=== PATIENT | female | born 1995 | race Caucasian/White ===

== ENCOUNTER 2016-11-18 19:17 | Emergency (ER) | payer BC, SELFPAY ==
[~2016-11-18] VITALS: Ht 177.8 cm; Wt 127.0 kg
[2016-11-18] MEDS ORDERED: METF500T PO (19:38)
[2016-11-18] MEDS ORDERED: NAPR500T PO (20:39)
[2016-11-18 20:46] VITALS: BP 122/52
== END 2016-11-18 20:53 | disposition home or self-care (01) ==
LOC: M ED 20:52
DX: N94.6 Dysmenorrhea, unspecified (principal); E28.2 Polycystic ovarian syndrome; E66.9 Obesity, unspecified; E11.9 Type 2 diabetes mellitus without complications; Z79.899 Other long term (current) drug therapy

== ENCOUNTER 2017-01-20 16:47 | Emergency (ER) | payer MEDICAID, OTHER, SELFPAY ==
[~2017-01-20 16:47] MED LIST: METF500T13 PO; NAPR500T PO
[2017-01-20] MEDS ORDERED: NS 1,000 ML IV ONE (17:15)
[2017-01-20] MEDS ORDERED: METF500T13 PO (17:18)
[2017-01-20] MEDS ORDERED: D-CA1KIT XX (17:19)
[2017-01-20 17:38] LABS: MEAN CORPUSCULAR HEMOGLOBIN 30.5 pg (27.0-33.0); MEAN CORPUSCULAR VOLUME 87.1 fl (80.0-96.0); RED CELL DISTRIBUTION WIDTH 12.5 % (11.5-14.5)
[2017-01-20 18:01] LABS: ANION GAP 8 MEQ/L (8-16); BLOOD UREA NITROGEN 10 MG/DL (7-18); CALCIUM LEVEL 8.6 MG/DL (8.5-10.1); CARBON DIOXIDE LEVEL 26 MEQ/L (21-32); CHLORIDE LEVEL 104 MEQ/L (98-107); CREATININE FOR GFR 0.67 MG/DL (0.55-1.02); GLOMERULAR FILTRATION RATE > 60.0 (>60); GLUCOSE, FASTING 309 MG/DL (70-105); POTASSIUM SERUM 3.9 MEQ/L (3.5-5.1); SODIUM LEVEL 138 MEQ/L (136-145)
[2017-01-20 18:35] VITALS: BP 151/89
== END 2017-01-20 18:38 | disposition home or self-care (01) ==
LOC: M ED 16:47
DX: E11.65 Type 2 diabetes mellitus with hyperglycemia (principal); Z91.14 Patient's other noncompliance with medication regimen; Z79.84 Long term (current) use of oral hypoglycemic drugs

== ENCOUNTER 2017-02-08 12:40 | Emergency (ER) | payer MEDICAID, SELFPAY ==
[~2017-02-08 12:40] MED LIST changes: +D-CA1KIT XX
[2017-02-08] MEDS ORDERED: NS 1,000 ML IV ONE (13:30)
[2017-02-08 13:39] LABS: BASO % 0.3 % (0.0-1.0); EOS # 0.1 K/mm3 (0.0-0.50); EOS % 0.6 % (0.0-3.0); LARGE UNSTAINED CELL # 0.1 K/mm3 (0.0-0.4); LYMPH % 20.9 % (24.0-44.0); MEAN CORPUSCULAR HEMOGLOBIN 29.7 pg (27.0-33.0); MEAN CORPUSCULAR VOLUME 87.3 fl (80.0-96.0); MONO # 0.3 K/mm3 (0.0-0.8); MONO % 3.2 % (0.0-5.0); NEUTROPHILS # 6.9 K/mm3 (1.8-7.7); PLATELET COUNT, AUTOMATED 321 k/mm3 (150-450); RED CELL DISTRIBUTION WIDTH 12.9 % (11.5-14.5); WHITE BLOOD COUNT 9.3 K/mm3 (4.0-10.0)
[2017-02-08 13:56] LABS: OSMOLALITY SERUM 303 MOSM/KG (275-295)
[2017-02-08 14:02] LABS: ALBUMIN 3.6 GM/DL (3.2-5.2); ALBUMIN/GLOBULIN RATIO 0.77 (1.00-1.93); ALKALINE PHOSPHATASE 73 U/L (45-117); ALT/SGPT 37 U/L (12-78); ANION GAP 8 MEQ/L (8-16); AST/SGOT 17 U/L (15-37); BILIRUBIN,DIRECT 0.1 MG/DL (0.0-0.2); BILIRUBIN,TOTAL 0.4 MG/DL (0.2-1.0); BLOOD UREA NITROGEN 11 MG/DL (7-18); CALCIUM LEVEL 9.2 MG/DL (8.5-10.1); CARBON DIOXIDE LEVEL 26 MEQ/L (21-32); CHLORIDE LEVEL 103 MEQ/L (98-107); CREATININE FOR GFR 0.63 MG/DL (0.55-1.02); GLOMERULAR FILTRATION RATE > 60.0 (>60); GLUCOSE, FASTING 310 MG/DL (70-105); MAGNESIUM LEVEL 1.7 MG/DL (1.8-2.4); POTASSIUM SERUM 4.2 MEQ/L (3.5-5.1); SODIUM LEVEL 137 MEQ/L (136-145); TOTAL PROTEIN 8.3 GM/DL (6.4-8.2)
[2017-02-08 14:04] LABS: CONTROL LINE HCG INT CTR LINE PRESENT
[2017-02-08 14:16] LABS: METHADONE URINE NEGATIVE (NEGATIVE)
[2017-02-08 14:18] VITALS: BP 93/52
[2017-02-08] MEDS ORDERED: glipiZIDE (GLUCOTROL) 5 MG TAB PO ONE (15:00)
[2017-02-08] MEDS ORDERED: GLIP10TA6 PO (15:01)
[2017-02-08] MEDS ORDERED: BLOOKIT20 XX (15:01)
== END 2017-02-08 15:13 | disposition home or self-care (01) ==
LOC: M ED 12:40 → EDBD 12:40 → M ED 15:13
DX: E11.65 Type 2 diabetes mellitus with hyperglycemia (principal); Z79.84 Long term (current) use of oral hypoglycemic drugs; Z91.02 Food additives allergy status

== ENCOUNTER 2017-02-23 14:55 | Emergency (ER) | payer MEDICAID, SELFPAY ==
[~2017-02-23] VITALS: Ht 177.8 cm; Wt 127.8 kg
[~2017-02-23 14:55] MED LIST changes: +BLOOKIT20 XX; +GLIP10TA6 PO
[2017-02-23 14:56] VITALS: BP 131/76
[2017-02-24] MEDS ORDERED: BACT800T5 PO (00:24)
[2017-02-24] MEDS ORDERED: METF500T13 PO (01:15)
== END 2017-02-23 16:53 | disposition left against medical advice (07) ==
LOC: M ED 14:55
DX: R10.9 Unspecified abdominal pain (principal); Z53.21 Procedure and treatment not carried out due to patient leaving prior to being seen by health care provider

== ENCOUNTER 2017-02-23 22:14 | Emergency (ER) | payer MEDICAID, SELFPAY ==
[2017-02-23] MEDS ORDERED: NS 1,000 ML IV ONE (23:15)
[2017-02-23] MEDS ORDERED: HumuLIN R (REGULAR) INSULIN (NovoLIN R) **100U/ML** PER UNIT IV ONE (23:15)
[2017-02-24 00:13] LABS: ANION GAP 7 MEQ/L (8-16); BLOOD UREA NITROGEN 10 MG/DL (7-18); CALCIUM LEVEL 9.4 MG/DL (8.5-10.1); CARBON DIOXIDE LEVEL 29 MEQ/L (21-32); CHLORIDE LEVEL 101 MEQ/L (98-107); CREATININE FOR GFR 0.62 MG/DL (0.55-1.02); GLOMERULAR FILTRATION RATE > 60.0 (>60); GLUCOSE, FASTING 347 MG/DL (70-105); POTASSIUM SERUM 4.2 MEQ/L (3.5-5.1); SODIUM LEVEL 137 MEQ/L (136-145)
[2017-02-24] MEDS ORDERED: BACT800T5 PO (00:24)
[2017-02-24] MEDS ORDERED: METF500T13 PO (01:15)
== END 2017-02-24 01:20 | disposition home or self-care (01) ==
LOC: M ED 22:14 → EDBD 22:14 → M ED 02-24 01:20
DX: E11.65 Type 2 diabetes mellitus with hyperglycemia (principal); N39.0 Urinary tract infection, site not specified; Z91.14 Patient's other noncompliance with medication regimen; Z79.899 Other long term (current) drug therapy; Z79.84 Long term (current) use of oral hypoglycemic drugs; Z91.02 Food additives allergy status

== ENCOUNTER 2017-03-04 17:21 | Emergency (ER) | payer MEDICAID ==
[~2017-03-04] VITALS: Ht 177.8 cm; Wt 127.3 kg
[~2017-03-04 17:21] MED LIST changes: +BACT800T5 PO
[2017-03-04] MEDS ORDERED: BACT800T5 PO (18:35)
[2017-03-04 18:45] VITALS: BP 129/81
== END 2017-03-04 18:46 | disposition home or self-care (01) ==
LOC: M ED 17:21
DX: E11.9 Type 2 diabetes mellitus without complications (principal); L03.90 Cellulitis, unspecified; Z79.84 Long term (current) use of oral hypoglycemic drugs; Z79.899 Other long term (current) drug therapy; Z91.018 Allergy to other foods

== ENCOUNTER 2017-03-09 08:44 | Emergency (ER) | payer MEDICAID ==
[2017-03-09 09:13] VITALS: BP 119/72
[2017-03-09] MEDS ORDERED: DOXY100C PO (09:58)
[2017-03-09] MEDS ORDERED: NAPR500T PO (09:59)
== END 2017-03-09 10:30 | disposition home or self-care (01) ==
LOC: EEVIPCON 08:44 → M ED 08:44
DX: L03.312 Cellulitis of back [any part except buttock and flank] (principal); E11.9 Type 2 diabetes mellitus without complications; E66.9 Obesity, unspecified; Z79.84 Long term (current) use of oral hypoglycemic drugs; Z91.02 Food additives allergy status

== ENCOUNTER 2017-03-24 09:35 | Emergency (ER) | payer MEDICAID ==
[~2017-03-24] VITALS: Ht 177.8 cm; Wt 127.7 kg
[~2017-03-24 09:35] MED LIST changes: +DOXY100C PO
[2017-03-24] MEDS ORDERED: IBUPROFEN 800 MG TAB PO ONE (11:30)
[2017-03-24] MEDS ORDERED: PERCOCET 5MG/325MG TAB PO ONE (11:45)
[2017-03-24 11:47] LABS: BASO % 0.3 % (0.0-1.0); EOS % 0.1 % (0.0-3.0); IMMATURE GRANULOCYTE % 0.3 % (0-0); LYMPH # 2.3 10^3/uL (1.5-6.5); LYMPH % 15.7 % (24.0-44.0); MEAN CORPUSCULAR HEMOGLOBIN 28.9 pg (27.0-33.0); MEAN CORPUSCULAR HGB CONC 33.3 g/dl (32.0-36.5); MONO # 0.7 10^3/uL (0.0-0.8); MONO % 5.1 % (0.0-5.0); NEUTROPHILS # 11.3 10^3/uL (1.8-7.7); NEUTROPHILS % 78.5 % (36.0-66.0); PLATELET COUNT, AUTOMATED 317 10^3/uL (150-450); RED CELL DISTRIBUTION WIDTH 12.2 % (11.5-14.5); WHITE BLOOD COUNT 14.4 10^3/uL (4.0-10.0)
[2017-03-24 12:05] LABS: ERYTHROCYTE SEDIMENTATION RATE 50 mm/hr (0-20)
[2017-03-24 12:39] VITALS: BP 139/90
[2017-03-24] MEDS ORDERED: PRED20TA PO (12:44)
[2017-03-24] MEDS ORDERED: PERC5TAB12 PO (12:44)
[2017-03-24] MEDS ORDERED: CELE1CAP4 PO (12:44)
--- NOTE | 2017-03-24 15:13 | REP ---
LEFT SHOULDER SERIES: FOUR VIEWS. HISTORY: Atraumatic pain. FINDINGS: Four views of the left shoulder demonstrate normal alignment of the glenohumeral and acromioclavicular joints. Periarticular soft tissues are unremarkable. No rib or pulmonary lesion is visible. IMPRESSION: Negative left shoulder radiographs. Signed by Scott Jerez MD 03/24/2017 05:28 P
== END 2017-03-24 13:00 | disposition home or self-care (01) ==
LOC: M ED 09:35
DX: M13.812 Other specified arthritis, left shoulder (principal); E11.9 Type 2 diabetes mellitus without complications; F41.9 Anxiety disorder, unspecified; F32.9 Major depressive disorder, single episode, unspecified; Z79.84 Long term (current) use of oral hypoglycemic drugs; Z79.899 Other long term (current) drug therapy; Z91.02 Food additives allergy status

== ENCOUNTER 2017-03-27 10:03 | Emergency (ER) | payer MEDICAID ==
[~2017-03-27] VITALS: Ht 177.8 cm; Wt 127.3 kg
[2017-03-27 10:03] VITALS: BP 147/78
[~2017-03-27 10:03] MED LIST changes: +CELE1CAP4 PO; +PERC5TAB12 PO; +PRED20TA PO
[2017-03-27] MEDS ORDERED: NORCO, ANEXSIA 5/325MG TABLET (HYDROcodone/ACETAMINOPHEN) PO ONE (10:30)
[2017-03-27] MEDS ORDERED: IBUPROFEN 800 MG TAB PO ONE (10:30)
[2017-03-27] MEDS ORDERED: NAPR500T PO (10:48)
[2017-03-27] MEDS ORDERED: NORCOTAB PO (10:48)
== END 2017-03-27 11:18 | disposition home or self-care (01) ==
LOC: M ED 10:03
DX: M06.812 Other specified rheumatoid arthritis, left shoulder (principal); M19.012 Primary osteoarthritis, left shoulder; E11.9 Type 2 diabetes mellitus without complications; Z79.899 Other long term (current) drug therapy; Z91.02 Food additives allergy status

== ENCOUNTER 2017-03-30 09:55 | Emergency (ER) | payer MEDICAID ==
[~2017-03-30] VITALS: Ht 177.8 cm; Wt 127.3 kg
[~2017-03-30 09:55] MED LIST changes: +NORCOTAB PO
[2017-03-30 09:56] VITALS: BP 135/76
[2017-03-30] MEDS ORDERED: PERC5TAB12 (10:13)
[2017-03-30] MEDS ORDERED: BACT800T5 PO (11:24)
[2017-03-30] MEDS ORDERED: IBUP-1022 PO (11:24)
== END 2017-03-30 11:42 | disposition home or self-care (01) ==
LOC: M ED 09:55
DX: L02.211 Cutaneous abscess of abdominal wall (principal); E11.9 Type 2 diabetes mellitus without complications; Z79.84 Long term (current) use of oral hypoglycemic drugs; Z79.899 Other long term (current) drug therapy; Z91.02 Food additives allergy status

== ENCOUNTER 2017-04-02 11:27 | Emergency (ER) | payer MEDICAID ==
[~2017-04-02] VITALS: Ht 177.8 cm; Wt 124.1 kg
[~2017-04-02 11:27] MED LIST changes: +IBUP-1022 PO; +PERC5TAB12
[2017-04-02] MEDS ORDERED: KETOROLAC 30 MG/ML VIAL (J1885) IV ONE (12:45)
[2017-04-02] MEDS ORDERED: CLINDAMYCIN 600 MG in APPROPRIATE DILUENT 1 EA IV ONE (12:45)
[2017-04-02] MEDS ORDERED: NS 500 ML IV ONE (12:45)
[2017-04-02] MEDS ORDERED: MORPHINE 4 MG/ML 1ML SYRINGE IV ONE (12:45)
--- NOTE | 2017-04-02 13:06 | ED PDOC ---
Post-Departure Follow-Up PT PRESENTS TODAY FROM DR. BEASLEY'S OFFICE ([facility] – [place]) COMPLAINING OF LEFT ARM/ SHOULDER/AXILLARY PAIN. STATES SHE WAS SEEN IN THE ER A FEW WEEKS AGO FOR JOINT PAIN AND AN INFECTION ON HER ABDOMEN. WAS PRESCRIBED ANTIBIOTICS BUT STATES WHEN SHE TRIED TO PICK THEM UP, THE PROVIDER WASN'T COVERED BY HER PLAN AND SHE WAS UNABLE TO GET THE PRESCRIPTION FOR ANTIBIOTICS. STATES THAT INFECTION HAS BEEN SPREADING ACROSS HER ABDOMEN OVER THE PAST 2 WEEKS. STATES SHE IS A DIABETIC AND IS SUPPOSED TO CHECK HER BLOOD SUGAR BUT DOESN'T. IS ESTABLISHING WITH A NEW PCP WITHIN THE NEXT MONTH "TO GET EVERYTHING IN ORDER". STATES NO INJURY TO LEFT SHOULDER. FAMILY HISTORY OF BLOOD CLOTS, DENIES SMOKING. STATES NOW HAVING PAIN IN THE LEFT SHOULDER AND DR. BEASLEY CONCERNED FOR A DVT AND SENT PT IN TO THE ED TO R/O DVT. BRITANY GERMAIN PA-C Apr 02, 2017 13:06
[2017-04-02 13:19] LABS: BASO % 0.1 % (0.0-1.0); EOS # 0.1 10^3/uL (0.0-0.50); EOS % 0.6 % (0.0-3.0); IMMATURE GRANULOCYTE % 0.4 % (0-0); LYMPH # 2.8 10^3/uL (1.5-6.5); MEAN CORPUSCULAR HEMOGLOBIN 29.2 pg (27.0-33.0); MEAN CORPUSCULAR HGB CONC 33.2 g/dl (32.0-36.5); MEAN CORPUSCULAR VOLUME 88.1 fl (80.0-96.0); MONO # 0.8 10^3/uL (0.0-0.8); NEUTROPHILS # 12.5 10^3/uL (1.8-7.7); NEUTROPHILS % 76.9 % (36.0-66.0); PLATELET COUNT, AUTOMATED 396 10^3/uL (150-450); RED CELL DISTRIBUTION WIDTH 12.2 % (11.5-14.5); WHITE BLOOD COUNT 16.2 10^3/uL (4.0-10.0)
[2017-04-02 13:25] LABS: ANION GAP 5 MEQ/L (8-16); BLOOD UREA NITROGEN 12 MG/DL (7-18); CALCIUM LEVEL 9.4 MG/DL (8.5-10.1); CARBON DIOXIDE LEVEL 32 MEQ/L (21-32); CHLORIDE LEVEL 98 MEQ/L (98-107); CREATININE FOR GFR 0.62 MG/DL (0.55-1.02); GLOMERULAR FILTRATION RATE > 60.0 (>60); GLUCOSE, FASTING 291 MG/DL (70-105); POTASSIUM SERUM 3.6 MEQ/L (3.5-5.1); SODIUM LEVEL 135 MEQ/L (136-145)
--- NOTE | 2017-04-02 14:11 | REP ---
LEFT UPPER EXTREMITY DUPLEX VEINS. HISTORY: Left arm pain. There are no filling defects in the deep venous system. The deep venous system is patent. A mixed hypo isoechoic structure is present in the axilla. This measures 5.3 x 4.5 x 2.6 cm. IMPRESSION: 1. There is no deep venous thrombosis. 2. There is a mixed echoic structure in the axilla that may represent an abscess or hematoma. Signed by Charles Llamas MD 04/02/2017 02:14 P
[2017-04-02 14:13] LABS: ERYTHROCYTE SEDIMENTATION RATE 75 mm/hr (0-20)
[2017-04-02] MEDS ORDERED: NORCOTAB PO (14:27)
[2017-04-02] MEDS ORDERED: CLEO300C2 PO (14:27)
[2017-04-02] MEDS ORDERED: METF-839 PO (14:27)
[2017-04-02 15:52] VITALS: BP 138/77
== END 2017-04-02 15:56 | disposition home or self-care (01) ==
LOC: M ED 11:27
DX: L02.412 Cutaneous abscess of left axilla (principal); L03.311 Cellulitis of abdominal wall; R73.09 Other abnormal glucose; E11.65 Type 2 diabetes mellitus with hyperglycemia; F41.9 Anxiety disorder, unspecified; F32.9 Major depressive disorder, single episode, unspecified; M06.9 Rheumatoid arthritis, unspecified; Z79.84 Long term (current) use of oral hypoglycemic drugs; Z79.899 Other long term (current) drug therapy; Z91.02 Food additives allergy status
CPT/HCPCS: 80048; 83036; 85025; 85652; 86140; 87040; 87070; 87077; 87186; 87205; 93971; 96374; 96375; 99283; J1885

== ENCOUNTER 2017-04-02 22:04 | Emergency (ER) | payer MEDICAID ==
[~2017-04-02 22:04] MED LIST changes: +CLEO300C2 PO; +METF-839 PO
== END 2017-04-02 22:25 | disposition left against medical advice (07) ==
LOC: EDBD 22:04 → M ED 22:04
DX: R73.9 Hyperglycemia, unspecified (principal); Z53.21 Procedure and treatment not carried out due to patient leaving prior to being seen by health care provider

== ENCOUNTER 2017-04-06 17:03 | Emergency (ER) | payer MEDICAID ==
[~2017-04-06] VITALS: Ht 177.8 cm; Wt 124.1 kg
[2017-04-06] MEDS ORDERED: ONDANSETRON 4MG/2ML VIAL (J2405) IV ONE (18:45)
[2017-04-06] MEDS ORDERED: MORPHINE 4 MG/ML 1ML SYRINGE IV ONE (18:45)
[2017-04-06 19:04] LABS: BASO % 0.3 % (0.0-1.0); EOS # 0.2 10^3/uL (0.0-0.50); EOS % 1.6 % (0.0-3.0); IMMATURE GRANULOCYTE % 0.4 % (0-0); LYMPH # 2.7 10^3/uL (1.5-6.5); LYMPH % 18.8 % (24.0-44.0); MEAN CORPUSCULAR HEMOGLOBIN 28.8 pg (27.0-33.0); MEAN CORPUSCULAR VOLUME 87.2 fl (80.0-96.0); MONO # 0.6 10^3/uL (0.0-0.8); MONO % 4.2 % (0.0-5.0); NEUTROPHILS # 10.6 10^3/uL (1.8-7.7); NEUTROPHILS % 74.7 % (36.0-66.0); PLATELET COUNT, AUTOMATED 444 10^3/uL (150-450); WHITE BLOOD COUNT 14.2 10^3/uL (4.0-10.0)
[2017-04-06 19:23] LABS: ALBUMIN 2.9 GM/DL (3.2-5.2); ALBUMIN/GLOBULIN RATIO 0.53 (1.00-1.93); ALKALINE PHOSPHATASE 113 U/L (45-117); ALT/SGPT 20 U/L (12-78); ANION GAP 6 MEQ/L (8-16); AST/SGOT 7 U/L (15-37); BILIRUBIN,TOTAL 0.2 MG/DL (0.2-1.0); BLOOD UREA NITROGEN 10 MG/DL (7-18); CALCIUM LEVEL 9.2 MG/DL (8.5-10.1); CARBON DIOXIDE LEVEL 30 MEQ/L (21-32); CHLORIDE LEVEL 101 MEQ/L (98-107); CREATININE FOR GFR 0.79 MG/DL (0.55-1.02); GLOMERULAR FILTRATION RATE > 60.0 (>60); GLUCOSE, FASTING 309 MG/DL (70-105); POTASSIUM SERUM 3.8 MEQ/L (3.5-5.1); SODIUM LEVEL 137 MEQ/L (136-145); TOTAL PROTEIN 8.4 GM/DL (6.4-8.2)
[2017-04-06] MEDS ORDERED: PERC5TAB12 PO (21:28)
[2017-04-06 22:05] VITALS: BP 130/84
== END 2017-04-06 22:17 | disposition home or self-care (01) ==
LOC: M ED 17:03
DX: L02.412 Cutaneous abscess of left axilla (principal); F41.9 Anxiety disorder, unspecified; E11.9 Type 2 diabetes mellitus without complications; Z79.84 Long term (current) use of oral hypoglycemic drugs; Z79.899 Other long term (current) drug therapy; Z91.02 Food additives allergy status
CPT/HCPCS: 10060; 80053; 85025; 87070; 87077; 87186; 96374; 96375; 99284; J2405; J3360

== ENCOUNTER → 2017-06-01 | Outpatient (CLI) | payer OTHER ==
--- NOTE | 2017-06-01 15:52 | REP ---
LEFT AXILLARY ULTRASOUND: Patient has a history of axillary abscess. Real-time sonographic evaluation of the left axillary region demonstrates a complex fluid collection which measures 5.9 x 1.7 x 5.4 cm. Findings are suspicious for recurrent abscess. Signed by Brian Estrada MD 06/01/2017 05:59 P
== END ==
LOC: M RAD 14:25
PROVIDERS: ATTEND Surgery
DX: L73.2 Hidradenitis suppurativa (principal)

== ENCOUNTER → 2017-06-16 | Outpatient (REF) | payer OTHER, MEDICAID ==
[2017-06-16 18:43] LABS: ALBUMIN 3.7 GM/DL (3.2-5.2); ALBUMIN/GLOBULIN RATIO 0.79 (1.00-1.93); ALKALINE PHOSPHATASE 82 U/L (45-117); ALT/SGPT 24 U/L (12-78); ANION GAP 9 MEQ/L (8-16); AST/SGOT 11 U/L (7-37); BILIRUBIN,TOTAL 0.3 MG/DL (0.2-1.0); BLOOD UREA NITROGEN 14 MG/DL (7-18); CALCIUM LEVEL 8.8 MG/DL (8.5-10.1); CARBON DIOXIDE LEVEL 24 MEQ/L (21-32); CHLORIDE LEVEL 103 MEQ/L (98-107); CREATININE FOR GFR 0.58 MG/DL (0.55-1.02); GLOMERULAR FILTRATION RATE > 60.0 (>60); GLUCOSE, FASTING 329 MG/DL (70-105); POTASSIUM SERUM 4.3 MEQ/L (3.5-5.1); SODIUM LEVEL 136 MEQ/L (136-145); TOTAL PROTEIN 8.4 GM/DL (6.4-8.2)
[2017-06-16 18:45] LABS: ESTIMATED AVERAGE GLUCOSE 295 MG/DL (60-110); HEMOGLOBIN A1c 11.9 %
== END ==
LOC: M LAB REF 18:06
DX: E11.9 Type 2 diabetes mellitus without complications (principal)
CPT/HCPCS: 83036

== ENCOUNTER → 2017-07-20 | Outpatient (CLI) | payer OTHER | LOC: M RAD 11:08 | DX: L73.2 Hidradenitis suppurativa (principal) | CPT/HCPCS: 76642 ==

== ENCOUNTER → 2017-08-27 | Outpatient (REF) | payer OTHER ==
[2017-08-27 15:43] LABS: CHLAMYDIA DNA AMPLIFICATION NEGATIVE (NEGATIVE); GC DNA AMPLIFICATION NEGATIVE (NEGATIVE)
== END ==
LOC: M LAB REF 13:17
DX: Z11.3 Encounter for screening for infections with a predominantly sexual mode of transmission (principal)

== ENCOUNTER 2017-12-10 19:02 | Emergency (ER) | payer BC, OTHER ==
[2017-12-10] MEDS: ONDANSETRON 4MG/2ML VIAL (J2405) IV ×2 (20:48)
[2017-12-10] MEDS: NS 1,000 ML IV ×2 (20:48)
[2017-12-10 20:55] LABS: BASO % 0.2 % (0.0-1.0); EOS # 0.1 10^3/uL (0.0-0.50); EOS % 0.7 % (0.0-3.0); HEMATOCRIT 40.4 % (36.0-47.0); HEMOGLOBIN 13.7 g/dl (12.0-15.5); IMMATURE GRANULOCYTE % 0.3 % (0-3.0); LYMPH # 2.4 10^3/uL (1.5-6.5); LYMPH % 24.3 % (24.0-44.0); MEAN CORPUSCULAR HEMOGLOBIN 28.7 pg (27.0-33.0); MEAN CORPUSCULAR HGB CONC 33.9 g/dl (32.0-36.5); MEAN CORPUSCULAR VOLUME 84.5 fl (80.0-96.0); MONO # 0.4 10^3/uL (0.0-0.8); MONO % 4.3 % (0.0-5.0); NEUTROPHILS # 6.9 10^3/uL (1.8-7.7); NEUTROPHILS % 70.2 % (36.0-66.0); PLATELET COUNT, AUTOMATED 345 10^3/uL (150-450); RED BLOOD COUNT 4.78 10^6/uL (4.00-5.40); RED CELL DISTRIBUTION WIDTH 12.4 % (11.5-14.5); WHITE BLOOD COUNT 9.9 10^3/uL (4.0-10.0)
[2017-12-10 20:59] LABS: KETONE, URINE AUTO RFX NEGATIVE (NEGATIVE); LEUKOCYTE ESTERASE UR AUTO RFX 1+ (NEGATIVE); NITRITE, URINE AUTO RFX NEGATIVE (NEGATIVE); RBC, URINE AUTO RFX 2 /HPF (0-3); SPECIFIC GRAVITY UR AUTO RFX 1.037 (1.002-1.035); SQUAM EPITHELIAL CELL UR AURFX 7 /HPF (0-6); WBC, URINE AUTO RFX 5 /HPF (0-3)
[2017-12-10 21:29] LABS: ALBUMIN 3.4 GM/DL (3.2-5.2); ALKALINE PHOSPHATASE 100 U/L (45-117); ALT/SGPT 38 U/L (12-78); AMYLASE 37 U/L (25-115); ANION GAP 7 MEQ/L (8-16); AST/SGOT 17 U/L (7-37); BILIRUBIN,DIRECT < 0.1 MG/DL (0.0-0.2); BILIRUBIN,TOTAL 0.3 MG/DL (0.2-1.0); BLOOD UREA NITROGEN 10 MG/DL (7-18); CALCIUM LEVEL 8.9 MG/DL (8.5-10.1); CARBON DIOXIDE LEVEL 26 MEQ/L (21-32); CHLORIDE LEVEL 104 MEQ/L (98-107); GLOMERULAR FILTRATION RATE > 60.0 (>60); GLUCOSE, FASTING 291 MG/DL (70-100); LIPASE 127 U/L (73-393); POTASSIUM SERUM 3.9 MEQ/L (3.5-5.1); SODIUM LEVEL 137 MEQ/L (136-145); TOTAL PROTEIN 9.1 GM/DL (6.4-8.2)
[2017-12-10] MEDS: HUMULIN R U-500 KWIKPEN 500UNITS/ML 3ML SYRINGE (J1815 PER 5UNITS) SC ×2 (21:41)
[2017-12-10] MEDS: ONDANSETRON 4 MG ORAL DISINTEGRATING TAB (Q0162 PER 1MG) PO ×2 (22:06)
[2017-12-10] MEDS: BACTRIM 160MG/800MG DS TAB PO ×2 (22:06)
== END 2017-12-10 22:11 | disposition home or self-care (01) ==
LOC: M ED 19:02
DX: N39.0 Urinary tract infection, site not specified (principal); R11.2 Nausea with vomiting, unspecified; R19.7 Diarrhea, unspecified; E11.9 Type 2 diabetes mellitus without complications; F31.9 Bipolar disorder, unspecified; F41.9 Anxiety disorder, unspecified; Z87.440 Personal history of urinary (tract) infections; Z91.02 Food additives allergy status; Z79.84 Long term (current) use of oral hypoglycemic drugs
CPT/HCPCS: J2405

== ENCOUNTER 2017-12-18 10:54 | Emergency (ER) | payer OTHER | END 2017-12-18 12:51 | disposition home or self-care (01) | LOC: M ED 10:54 | DX: J02.0 Streptococcal pharyngitis (principal); E11.9 Type 2 diabetes mellitus without complications; F33.9 Major depressive disorder, recurrent, unspecified; Z79.84 Long term (current) use of oral hypoglycemic drugs; Z91.018 Allergy to other foods | CPT/HCPCS: 87880 ==

== ENCOUNTER 2018-03-24 17:37 | Emergency (ER) | payer BC, MEDICAID, SELFPAY, OTHER ==
[2018-03-24 18:03] LABS: KETONE, URINE AUTO RFX NEGATIVE (NEGATIVE); NITRITE, URINE AUTO RFX NEGATIVE (NEGATIVE); RBC, URINE AUTO RFX 6 /HPF (0-3); SPECIFIC GRAVITY UR AUTO RFX 1.026 (1.002-1.035); SQUAM EPITHELIAL CELL UR AURFX 0 /HPF (0-6)
[2018-03-24 18:11] LABS: LEUKOCYTE ESTERASE UR AUTO RFX 2+ (NEGATIVE); WBC, URINE AUTO RFX 126 /HPF (0-3)
[2018-03-24] MEDS: NS 1,000 ML IV ×3 (19:29)
[2018-03-24] MEDS: KETOROLAC 30 MG/ML VIAL (J1885) IV ×3 (19:29)
[2018-03-24] MEDS: ONDANSETRON 4MG/2ML VIAL (J2405) IV ×3 (19:29)
[2018-03-24 19:44] LABS: BASO % 0.2 % (0.0-1.0); EOS % 0.4 % (0.0-3.0); HEMATOCRIT 39.7 % (36.0-47.0); HEMOGLOBIN 13.5 g/dl (12.0-15.5); IMMATURE GRANULOCYTE % 0.3 % (0-3.0); LYMPH # 1.7 10^3/uL (1.5-6.5); LYMPH % 16.4 % (24.0-44.0); MEAN CORPUSCULAR HEMOGLOBIN 29.3 pg (27.0-33.0); MEAN CORPUSCULAR VOLUME 86.1 fl (80.0-96.0); MONO # 0.5 10^3/uL (0.0-0.8); MONO % 4.8 % (0.0-5.0); NEUTROPHILS # 8.2 10^3/uL (1.8-7.7); NEUTROPHILS % 77.9 % (36.0-66.0); PLATELET COUNT, AUTOMATED 297 10^3/uL (150-450); RED BLOOD COUNT 4.61 10^6/uL (4.00-5.40); RED CELL DISTRIBUTION WIDTH 12.3 % (11.5-14.5); WHITE BLOOD COUNT 10.5 10^3/uL (4.0-10.0)
[2018-03-24 20:42] LABS: ALBUMIN 3.3 GM/DL (3.2-5.2); ALKALINE PHOSPHATASE 89 U/L (45-117); ALT/SGPT 37 U/L (12-78); ANION GAP 7 MEQ/L (8-16); AST/SGOT 14 U/L (7-37); BILIRUBIN,DIRECT < 0.1 MG/DL (0.0-0.2); BILIRUBIN,TOTAL 0.6 MG/DL (0.2-1.0); BLOOD UREA NITROGEN 10 MG/DL (7-18); CALCIUM LEVEL 8.5 MG/DL (8.5-10.1); CARBON DIOXIDE LEVEL 27 MEQ/L (21-32); CHLORIDE LEVEL 102 MEQ/L (98-107); CREATININE FOR GFR 0.63 MG/DL (0.55-1.30); GLOMERULAR FILTRATION RATE > 60.0 (>60); GLUCOSE, FASTING 262 MG/DL (70-100); LIPASE 101 U/L (73-393); POTASSIUM SERUM 3.9 MEQ/L (3.5-5.1); SODIUM LEVEL 136 MEQ/L (136-145); TOTAL PROTEIN 8.8 GM/DL (6.4-8.2)
[2018-03-24] MEDS: MORPHINE 4 MG/ML 1ML VIAL/SYRINGE (J2270) IV ×3 (23:53)
== END 2018-03-25 00:12 | disposition home or self-care (01) ==
LOC: M ED 03-25 00:12
DX: N83.202 Unspecified ovarian cyst, left side (principal); K80.20 Calculus of gallbladder without cholecystitis without obstruction; K76.0 Fatty (change of) liver, not elsewhere classified; E11.9 Type 2 diabetes mellitus without complications; Z91.018 Allergy to other foods
CPT/HCPCS: J2270

== ENCOUNTER 2018-03-26 13:16 | Inpatient (IN) | payer MEDICAID, SELFPAY ==
[2018-03-26 14:23] LABS: BASO % 0.2 % (0.0-1.0); HEMATOCRIT 39.5 % (36.0-47.0); HEMOGLOBIN 13.5 g/dl (12.0-15.5); IMMATURE GRANULOCYTE % 0.3 % (0-3.0); LYMPH # 0.9 10^3/uL (1.5-6.5); LYMPH % 9.3 % (24.0-44.0); MEAN CORPUSCULAR HEMOGLOBIN 29.7 pg (27.0-33.0); MEAN CORPUSCULAR HGB CONC 34.2 g/dl (32.0-36.5); MEAN CORPUSCULAR VOLUME 86.8 fl (80.0-96.0); MONO # 0.5 10^3/uL (0.0-0.8); MONO % 5.4 % (0.0-5.0); NEUTROPHILS # 8.1 10^3/uL (1.8-7.7); NEUTROPHILS % 84.8 % (36.0-66.0); PLATELET COUNT, AUTOMATED 226 10^3/uL (150-450); RED BLOOD COUNT 4.55 10^6/uL (4.00-5.40); RED CELL DISTRIBUTION WIDTH 11.9 % (11.5-14.5); WHITE BLOOD COUNT 9.5 10^3/uL (4.0-10.0)
[2018-03-26] MEDS: NS 1,000 ML IV ×3 (14:25→20:38)
[2018-03-26] MEDS: ONDANSETRON 4MG/2ML VIAL (J2405) IV (14:38)
[2018-03-26] MEDS: MORPHINE 2 MG/ML 1ML SYRINGE (J2270) IV (14:39)
[2018-03-26 14:48] LABS: CONTROL LINE HCG INT CTR LINE PRESENT; HCG, SERUM QUALITATIVE NEGATIVE (NEGATIVE)
[2018-03-26] MEDS: LevoFLOXacin IV 500 MG in APPROPRIATE DILUENT 1 EA IV (14:50)
[2018-03-26 14:51] LABS: ALBUMIN 2.8 GM/DL (3.2-5.2); ALBUMIN/GLOBULIN RATIO 0.49 (1.00-1.93); ALKALINE PHOSPHATASE 90 U/L (45-117); ALT/SGPT 50 U/L (12-78); AMYLASE 29 U/L (25-115); ANION GAP 9 MEQ/L (8-16); AST/SGOT 35 U/L (7-37); BILIRUBIN,DIRECT 0.2 MG/DL (0.0-0.2); BILIRUBIN,TOTAL 0.5 MG/DL (0.2-1.0); BLOOD UREA NITROGEN 8 MG/DL (7-18); CALCIUM LEVEL 8.5 MG/DL (8.5-10.1); CARBON DIOXIDE LEVEL 26 MEQ/L (21-32); CHLORIDE LEVEL 101 MEQ/L (98-107); CREATININE FOR GFR 0.77 MG/DL (0.55-1.30); GLOMERULAR FILTRATION RATE > 60.0 (>60); GLUCOSE, FASTING 295 MG/DL (70-100); LIPASE 89 U/L (73-393); POTASSIUM SERUM 3.8 MEQ/L (3.5-5.1); SODIUM LEVEL 136 MEQ/L (136-145); TOTAL PROTEIN 8.5 GM/DL (6.4-8.2)
[2018-03-26 15:02] LABS: LACTIC ACID SEPSIS PROTOCOL 2.3 MMOL/L (0.4-2.0)
[2018-03-26 15:10] LABS: KETONE, URINE AUTO RFX TRACE mg/dL (NEGATIVE); LEUKOCYTE ESTERASE UR AUTO RFX 2+ (NEGATIVE); MUCUS, URINE RFX SMALL (NEGATIVE); NITRITE, URINE AUTO RFX NEGATIVE (NEGATIVE); RBC, URINE AUTO RFX 7 /HPF (0-3); SQUAM EPITHELIAL CELL UR AURFX 5 /HPF (0-6); WBC, URINE AUTO RFX TNTC /HPF (0-3)
[2018-03-26] MEDS: KETOROLAC 30 MG/ML VIAL (J1885) IV (16:16)
[2018-03-26] MEDS ORDERED: ONDANSETRON 4 MG TAB (S0181) PO (17:00)
[2018-03-26] MEDS ORDERED: GLUCOSE 4 GM CHEW TABLET PO (17:00)
[2018-03-26] MEDS ORDERED: DEXTROSE 50% 50 ML SYRINGE IV (17:00)
[2018-03-26] MEDS ORDERED: ONDANSETRON 4MG/2ML VIAL (J2405) IV (17:00)
[2018-03-26] MEDS ORDERED: GLUCAGON FOR INJ 1 MG VIAL (J1610) SC (17:00)
[2018-03-26] MEDS: HumaLOG INSULIN (NovoLOG) PER UNIT SC ×2 (17:30→20:39)
[2018-03-26 20:28] LABS: BEDSIDE GLUCOSE 257 MG/DL (70-105)
[2018-03-26] MEDS: ACETAMINOPHEN TAB 650MG DOSE (2X325MG) PO (20:41)
[2018-03-26] MEDS: FIORICET TAB PO (21:52)
[2018-03-26 23:41] LABS: LACTIC ACID SEPSIS PROTOCOL 1.6 MMOL/L (0.4-2.0)
[2018-03-27] MEDS: ACETAMINOPHEN TAB 650MG DOSE (2X325MG) PO ×3 (02:42→23:36)
[2018-03-27] MEDS: IBUPROFEN 600 MG TAB PO ×2 (03:10→11:22)
[2018-03-27 06:20] LABS: BASO % 0.2 % (0.0-1.0); HEMATOCRIT 34.5 % (36.0-47.0); HEMOGLOBIN 11.8 g/dl (12.0-15.5); IMMATURE GRANULOCYTE % 0.6 % (0-3.0); LYMPH # 0.8 10^3/uL (1.5-6.5); LYMPH % 15.4 % (24.0-44.0); MEAN CORPUSCULAR HEMOGLOBIN 29.6 pg (27.0-33.0); MEAN CORPUSCULAR HGB CONC 34.2 g/dl (32.0-36.5); MEAN CORPUSCULAR VOLUME 86.5 fl (80.0-96.0); MONO # 0.3 10^3/uL (0.0-0.8); MONO % 5.5 % (0.0-5.0); NEUTROPHILS % 78.3 % (36.0-66.0); PLATELET COUNT, AUTOMATED 198 10^3/uL (150-450); RED BLOOD COUNT 3.99 10^6/uL (4.00-5.40); RED CELL DISTRIBUTION WIDTH 11.9 % (11.5-14.5); WHITE BLOOD COUNT 5.1 10^3/uL (4.0-10.0)
[2018-03-27 06:43] LABS: ESTIMATED AVERAGE GLUCOSE 260 MG/DL (60-110); HEMOGLOBIN A1c 10.7 %
[2018-03-27] MEDS: NS 1,000 ML IV (06:46)
[2018-03-27 06:48] LABS: ALBUMIN 2.5 GM/DL (3.2-5.2); ALBUMIN/GLOBULIN RATIO 0.54 (1.00-1.93); ALKALINE PHOSPHATASE 78 U/L (45-117); ALT/SGPT 68 U/L (12-78); ANION GAP 9 MEQ/L (8-16); AST/SGOT 63 U/L (7-37); BILIRUBIN,TOTAL 0.4 MG/DL (0.2-1.0); BLOOD UREA NITROGEN 7 MG/DL (7-18); CALCIUM LEVEL 8.1 MG/DL (8.5-10.1); CARBON DIOXIDE LEVEL 23 MEQ/L (21-32); CHLORIDE LEVEL 107 MEQ/L (98-107); CREATININE FOR GFR 0.61 MG/DL (0.55-1.30); GLOMERULAR FILTRATION RATE > 60.0 (>60); GLUCOSE, FASTING 295 MG/DL (70-100); MAGNESIUM LEVEL 1.7 MG/DL (1.8-2.4); POTASSIUM SERUM 3.6 MEQ/L (3.5-5.1); SODIUM LEVEL 139 MEQ/L (136-145); TOTAL PROTEIN 7.1 GM/DL (6.4-8.2)
[2018-03-27] MEDS: OMEPRAZOLE 20 MG CAP PO (08:46)
[2018-03-27] MEDS: HumaLOG INSULIN (NovoLOG) PER UNIT SC ×4 (08:47→20:32)
[2018-03-27] MEDS: LEVEMIR (INSULIN DETEMIR) 1 UNITS/0.01ML SC (08:48)
[2018-03-27] MEDS: ENOXAPARIN 40 MG/0.4 ML SYRINGE (J1650) SC (08:49)
[2018-03-27] MEDS: MAG SULF 1GM/100ML (MAG RUN) 1 GM in APPROPRIATE DILUENT 1 EA IV (08:49)
[2018-03-27 11:40] LABS: BEDSIDE GLUCOSE 232 MG/DL (70-105)
[2018-03-27] MEDS: LevoFLOXacin IV 750 MG in APPROPRIATE DILUENT 1 EA IV (14:45)
[2018-03-27 16:43] LABS: BEDSIDE GLUCOSE 259 MG/DL (70-105)
[2018-03-27 19:51] LABS: BEDSIDE GLUCOSE 283 MG/DL (70-105)
[2018-03-27] MEDS: KETOROLAC TROMETHAMINE 10 MG TAB PO (20:32)
[2018-03-28] MEDS: IBUPROFEN 600 MG TAB PO (05:44)
[2018-03-28 06:02] LABS: BASO % 0.2 % (0.0-1.0); HEMATOCRIT 34.4 % (36.0-47.0); HEMOGLOBIN 11.2 g/dl (12.0-15.5); IMMATURE GRANULOCYTE % 0.2 % (0-3.0); LYMPH # 1.2 10^3/uL (1.5-6.5); LYMPH % 28.6 % (24.0-44.0); MEAN CORPUSCULAR HEMOGLOBIN 28.4 pg (27.0-33.0); MEAN CORPUSCULAR HGB CONC 32.6 g/dl (32.0-36.5); MEAN CORPUSCULAR VOLUME 87.3 fl (80.0-96.0); MONO # 0.3 10^3/uL (0.0-0.8); MONO % 8.1 % (0.0-5.0); NEUTROPHILS # 2.5 10^3/uL (1.8-7.7); NEUTROPHILS % 61.9 % (36.0-66.0); PLATELET COUNT, AUTOMATED 188 10^3/uL (150-450); RED BLOOD COUNT 3.94 10^6/uL (4.00-5.40); WHITE BLOOD COUNT 4.1 10^3/uL (4.0-10.0)
[2018-03-28 06:45] LABS: ALBUMIN 2.2 GM/DL (3.2-5.2); ALBUMIN/GLOBULIN RATIO 0.46 (1.00-1.93); ALKALINE PHOSPHATASE 88 U/L (45-117); ALT/SGPT 96 U/L (12-78); ANION GAP 6 MEQ/L (8-16); AST/SGOT 70 U/L (7-37); BILIRUBIN,TOTAL 0.2 MG/DL (0.2-1.0); BLOOD UREA NITROGEN 9 MG/DL (7-18); CALCIUM LEVEL 7.8 MG/DL (8.5-10.1); CARBON DIOXIDE LEVEL 26 MEQ/L (21-32); CHLORIDE LEVEL 107 MEQ/L (98-107); CREATININE FOR GFR 0.59 MG/DL (0.55-1.30); GLOMERULAR FILTRATION RATE > 60.0 (>60); GLUCOSE, FASTING 258 MG/DL (70-100); MAGNESIUM LEVEL 1.7 MG/DL (1.8-2.4); POTASSIUM SERUM 4.1 MEQ/L (3.5-5.1); SODIUM LEVEL 139 MEQ/L (136-145)
[2018-03-28] MEDS: HumaLOG INSULIN (NovoLOG) PER UNIT SC ×4 (08:36→21:02)
[2018-03-28] MEDS: MAG SULF 1GM/100ML (MAG RUN) 1 GM in APPROPRIATE DILUENT 1 EA IV (08:38)
[2018-03-28] MEDS: OMEPRAZOLE 20 MG CAP PO (08:39)
[2018-03-28] MEDS: LEVEMIR (INSULIN DETEMIR) 1 UNITS/0.01ML SC (08:40)
[2018-03-28] MEDS: ENOXAPARIN 40 MG/0.4 ML SYRINGE (J1650) SC (08:41)
[2018-03-28] MEDS ORDERED: LEVEMIR (INSULIN DETEMIR) 1 UNITS/0.01ML SC (09:00)
[2018-03-28 11:24] LABS: BEDSIDE GLUCOSE 251 MG/DL (70-105)
[2018-03-28] MEDS: LevoFLOXacin IV 750 MG in APPROPRIATE DILUENT 1 EA IV (13:41)
[2018-03-28] MEDS: ACETAMINOPHEN TAB 650MG DOSE (2X325MG) PO ×2 (16:01→21:02)
[2018-03-28 16:28] LABS: BEDSIDE GLUCOSE 200 MG/DL (70-105)
[2018-03-28 20:59] LABS: BEDSIDE GLUCOSE 220 MG/DL (70-105)
[2018-03-29] MEDS: ACETAMINOPHEN TAB 650MG DOSE (2X325MG) PO (03:38)
[2018-03-29 07:48] LABS: BASO % 0.2 % (0.0-1.0); EOS % 0.2 % (0.0-3.0); HEMATOCRIT 33.6 % (36.0-47.0); HEMOGLOBIN 11.2 g/dl (12.0-15.5); IMMATURE GRANULOCYTE % 0.3 % (0-3.0); LYMPH % 34.6 % (24.0-44.0); MEAN CORPUSCULAR HEMOGLOBIN 28.8 pg (27.0-33.0); MEAN CORPUSCULAR HGB CONC 33.3 g/dl (32.0-36.5); MEAN CORPUSCULAR VOLUME 86.4 fl (80.0-96.0); MONO # 0.5 10^3/uL (0.0-0.8); MONO % 8.6 % (0.0-5.0); NEUTROPHILS # 3.3 10^3/uL (1.8-7.7); NEUTROPHILS % 56.1 % (36.0-66.0); PLATELET COUNT, AUTOMATED 253 10^3/uL (150-450); RED BLOOD COUNT 3.89 10^6/uL (4.00-5.40); RED CELL DISTRIBUTION WIDTH 12.2 % (11.5-14.5); WHITE BLOOD COUNT 5.8 10^3/uL (4.0-10.0)
[2018-03-29 08:03] LABS: ALBUMIN 2.4 GM/DL (3.2-5.2); ALBUMIN/GLOBULIN RATIO 0.48 (1.00-1.93); ALKALINE PHOSPHATASE 100 U/L (45-117); ALT/SGPT 89 U/L (12-78); ANION GAP 8 MEQ/L (8-16); AST/SGOT 52 U/L (7-37); BILIRUBIN,TOTAL 0.3 MG/DL (0.2-1.0); BLOOD UREA NITROGEN 5 MG/DL (7-18); CALCIUM LEVEL 8.4 MG/DL (8.5-10.1); CARBON DIOXIDE LEVEL 26 MEQ/L (21-32); CHLORIDE LEVEL 106 MEQ/L (98-107); CREATININE FOR GFR 0.48 MG/DL (0.55-1.30); GLOMERULAR FILTRATION RATE > 60.0 (>60); GLUCOSE, FASTING 173 MG/DL (70-100); MAGNESIUM LEVEL 1.9 MG/DL (1.8-2.4); POTASSIUM SERUM 3.6 MEQ/L (3.5-5.1); SODIUM LEVEL 140 MEQ/L (136-145); TOTAL PROTEIN 7.4 GM/DL (6.4-8.2)
[2018-03-29] MEDS: ENOXAPARIN 40 MG/0.4 ML SYRINGE (J1650) SC (08:37)
[2018-03-29] MEDS: OMEPRAZOLE 20 MG CAP PO (08:58)
[2018-03-29] MEDS: HumaLOG INSULIN (NovoLOG) PER UNIT SC ×2 (08:59→12:18)
[2018-03-29] MEDS: LEVEMIR (INSULIN DETEMIR) 1 UNITS/0.01ML SC (08:59)
[2018-03-29 11:49] LABS: BEDSIDE GLUCOSE 184 MG/DL (70-105)
[2018-03-29] MEDS: IBUPROFEN 600 MG TAB PO (12:18)
[2018-03-29] MEDS: LevoFLOXacin 500 MG TABLET PO (13:39)
== END 2018-03-29 15:49 | disposition home or self-care (01) | DRG 720 ==
LOC: M ED 13:16 → M ED INP 16:52 → M MSPAV 20:15
PROVIDERS: Hospitalist
DX: A41.9 Sepsis, unspecified organism (principal); E11.69 Type 2 diabetes mellitus with other specified complication; E11.65 Type 2 diabetes mellitus with hyperglycemia; N10 Acute pyelonephritis; B96.20 Unspecified Escherichia coli [E. coli] as the cause of diseases classified elsewhere; F41.9 Anxiety disorder, unspecified; F32.9 Major depressive disorder, single episode, unspecified; K52.9 Noninfective gastroenteritis and colitis, unspecified; R07.81 Pleurodynia; Z79.84 Long term (current) use of oral hypoglycemic drugs; E66.9 Obesity, unspecified; Z91.14 Patient's other noncompliance with medication regimen; Z79.899 Other long term (current) drug therapy

== ENCOUNTER 2018-05-16 04:00 | Emergency (ER) | payer BC, MEDICAID ==
[~2018-05-16] VITALS: Ht 177.8 cm; Wt 134.1 kg
[~2018-05-16 04:00] MED LIST changes: +AFRI0.0511; +ALCOPAD17 TOP; +AMOX875T PO; +BASA100I SC; +BENZ200C70 PO; -BLOOKIT20 XX; +BLOOKIT21 XX; +GLUC1TES2 XX; +INSU1MIS20 SC; +LANC30MI XX; +LEVA1TAB2 PO; +METF10004 PO; +NAPR-49 PO; -NAPR500T PO; +OMEP20TA PO; +PX O20TA PO; +TOUJ1.2I; +TOUJ1.2I SC; +ZOFR4TAB14 PO
[2018-05-16 05:50] LABS: BASO % 0.3 % (0.0-1.0); EOS # 0.1 10^3/uL (0.0-0.50); EOS % 0.9 % (0.0-3.0); HEMATOCRIT 41.1 % (36.0-47.0); LYMPH # 2.1 10^3/uL (1.5-6.5); LYMPH % 22.5 % (24.0-44.0); MEAN CORPUSCULAR HEMOGLOBIN 29.2 pg (27.0-33.0); MEAN CORPUSCULAR HGB CONC 34.1 g/dl (32.0-36.5); MEAN CORPUSCULAR VOLUME 85.6 fl (80.0-96.0); MONO # 0.4 10^3/uL (0.0-0.8); MONO % 4.2 % (0.0-5.0); NEUTROPHILS # 6.7 10^3/uL (1.8-7.7); NEUTROPHILS % 71.9 % (36.0-66.0); PLATELET COUNT, AUTOMATED 306 10^3/uL (150-450); WHITE BLOOD COUNT 9.3 10^3/uL (4.0-10.0)
[2018-05-16 06:19] LABS: ALT/SGPT 49 U/L (12-78); BLOOD UREA NITROGEN 13 MG/DL (7-18); CALCIUM LEVEL 8.8 MG/DL (8.5-10.1); CARBON DIOXIDE LEVEL 26 MEQ/L (21-32); CHLORIDE LEVEL 100 MEQ/L (98-107); CREATININE FOR GFR 0.79 MG/DL (0.55-1.30); GLOMERULAR FILTRATION RATE > 60.0 (>60); GLUCOSE, FASTING 472 MG/DL (70-100); POTASSIUM SERUM 4.4 MEQ/L (3.5-5.1); SODIUM LEVEL 134 MEQ/L (136-145)
[2018-05-16 06:20] LABS: ALBUMIN 3.4 GM/DL (3.2-5.2); BILIRUBIN,DIRECT < 0.1 MG/DL (0.0-0.2); BILIRUBIN,TOTAL 0.3 MG/DL (0.2-1.0); LIPASE 143 U/L (73-393); TOTAL PROTEIN 8.3 GM/DL (6.4-8.2)
[2018-05-16] MEDS ORDERED: ONDANSETRON 4 MG ORAL DISINTEGRATING TAB (Q0162 PER 1MG) PO ONE (06:30)
[2018-05-16] MEDS ORDERED: OMEP40CA2 PO (06:32)
[2018-05-16] MEDS ORDERED: PERC5TAB12 PO (06:32)
[2018-05-16] MEDS ORDERED: PERCOCET 5MG/325MG TAB PO ONE (06:45)
[2018-05-16] MEDS ORDERED: ONDA4TAB6 PO (07:52)
[2018-05-16 07:57] VITALS: BP 134/90
== END 2018-05-16 08:26 | disposition home or self-care (01) ==
LOC: M ED 04:00
DX: K80.70 Calculus of gallbladder and bile duct without cholecystitis without obstruction (principal); E11.65 Type 2 diabetes mellitus with hyperglycemia; R11.10 Vomiting, unspecified; Z87.19 Personal history of other diseases of the digestive system; F31.9 Bipolar disorder, unspecified; R51 Headache; Z87.42 Personal history of other diseases of the female genital tract; Z87.440 Personal history of urinary (tract) infections; Z91.018 Allergy to other foods; Z79.899 Other long term (current) drug therapy; Z79.4 Long term (current) use of insulin
CPT/HCPCS: 36415; 80048; 80076; 81025; 83690; 85025; 99284; Q0162

== ENCOUNTER 2018-05-18 15:30 | Emergency (ER) | payer MEDICAID | END 2018-05-18 17:04 | disposition left against medical advice (07) | LOC: M ED 15:30 | DX: R22.0 Localized swelling, mass and lump, head (principal); Z53.21 Procedure and treatment not carried out due to patient leaving prior to being seen by health care provider ==

== ENCOUNTER 2021-10-24 10:21 | Emergency (ER) | payer MEDICAID, SELFPAY ==
[~2021-10-24] VITALS: Ht 177.8 cm; Wt 122.7 kg
[2021-10-24 10:21] VITALS: BP 123/83
[~2021-10-24 10:21] MED LIST changes: -DOXY100C PO; +DOXY100C3 PO; +HYDR-3715 PO; -NAPR-49 PO; +NAPR-837 PO; -NORCOTAB PO; +OMEP-358 PO; +OMEP-404 PO; -OMEP20TA PO; +OMEP40CA4 PO; +ONDA4TAB6 PO; -PX O20TA PO
[2021-10-24] MEDS ORDERED: JANU100T PO (11:35)
== END 2021-10-24 13:47 | disposition home or self-care (01) ==
LOC: M ED 10:21
DX: S60.051A Contusion of right little finger without damage to nail, initial encounter (principal); S60.221A Contusion of right hand, initial encounter; W10.8XXA Fall (on) (from) other stairs and steps, initial encounter; Y92.018 Other place in single-family (private) house as the place of occurrence of the external cause; E11.9 Type 2 diabetes mellitus without complications; Z86.16 Personal history of COVID-19; Z79.84 Long term (current) use of oral hypoglycemic drugs; Z91.018 Allergy to other foods

== ENCOUNTER → 2021-11-14 | Outpatient (REF) ==
[~2021-11-14] MED LIST changes: +JANU100T PO
== END ==
LOC: M EMP 07:53
PROVIDERS: ATTEND Family Medicine
DX: Z11.52 Encounter for screening for COVID-19 (principal)

== ENCOUNTER 2022-02-26 10:20 | Emergency (ER) | payer SELFPAY ==
[~2022-02-26] VITALS: Ht 180.3 cm; Wt 127.5 kg
[2022-02-26 10:20] VITALS: BP 115/72
[2022-02-26] MEDS ORDERED: ACET650T15 PO (10:25)
== END 2022-02-26 11:51 | disposition left against medical advice (07) ==
LOC: M ED 10:20
DX: Z53.21 Procedure and treatment not carried out due to patient leaving prior to being seen by health care provider (principal)